=== PATIENT | male | born 1950 | race Two or more races ===

== ENCOUNTER 2025-01-02 13:10 | Emergency (ER) | payer MEDICAID, OTHER ==
[~2025-01-02] VITALS: Ht 170.2 cm; Wt 79.4 kg
[2025-01-02 15:18] LABS: PLATELET COUNT (AUTO) 226 K/uL (152-348); RED BLOOD CELL COUNT(AUTO) 5.31 MIL/uL (4.06-5.63); RED CELL DISTRIBUTION WIDTH 13.7 % (12.1-16.2); WHITE BLOOD COUNT (AUTO) 10.8 K/uL (3.6-10.2)
[2025-01-02 15:25] LABS: CREATININE 1.3 mg/dL (0.6-1.3); SODIUM SERUM 148 mmol/L (136-145); UREA NITROGEN, BLOOD 15 mg/dL (7-18)
[2025-01-02 15:39] LABS: ASPARTATE AMINOTRANSFERASE 13 U/L (15-37); TOTAL PROTEIN, SERUM 7.3 g/dL (6.4-8.2)
[2025-01-02] MEDS ORDERED: IOHEXOL 350 100 ML INFUS..BTL ONE (16:00)
[2025-01-02] MEDS: IV NORMAL SALINE 1000 ML BAG IV ONE (16:45)
[2025-01-02 23:00] VITALS: BP 152/86; O2SAT 95
== END 2025-01-02 23:03 | disposition short-term general hospital (02) ==
LOC: ER 13:10
DX: R55 Syncope and collapse (principal); I25.2 Old myocardial infarction; Z86.16 Personal history of COVID-19; Z88.5 Allergy status to narcotic agent; Z88.6 Allergy status to analgesic agent; X50.1XXA Overexertion from prolonged static or awkward postures, initial encounter; Y93.89 Activity, other specified; Y92.89 Other specified places as the place of occurrence of the external cause; Y99.8 Other external cause status
CPT/HCPCS: 99285; 70450; 96360; 93971; 71045; 96361; 80076; 80048; 83880; 85025; 85379; 85730; 84484 ×2; 36415; 73590; 71275; 93005; Q9967; J7040; A4606; A4663